=== PATIENT | male | born 1940 | race Caucasian/White ===

== ENCOUNTER 2017-01-19 08:25 | Outpatient (CLI) | payer MEDICARE, BC ==
[~2017-01-19 08:25] MED LIST: ADULT LOW DOSE81 MG PO; ASPIRIN 81MG TA81 MG PO; CHOLESTEROL MED PO; D-10001 TAB PO; LISINOPRIL2.5 M1 PO; WARFARIN SODIU7.5 MG PO
== END 2017-01-19 10:28 ==
LOC: ACC 08:25
DX: I63.9 Cerebral infarction, unspecified (principal); Z79.01 Long term (current) use of anticoagulants; Z51.81 Encounter for therapeutic drug level monitoring
CPT/HCPCS: G0463

== ENCOUNTER 2017-07-13 08:43 | Outpatient (CLI) | payer MEDICARE, BC | END 2017-07-13 10:47 | LOC: ACC 08:43 | DX: I25.3 Aneurysm of heart (principal); Z79.01 Long term (current) use of anticoagulants; Z51.81 Encounter for therapeutic drug level monitoring | CPT/HCPCS: G0463 ==

== ENCOUNTER 2017-10-19 08:32 | Outpatient (CLI) | payer MEDICARE, BC | END 2017-10-19 11:09 | LOC: ACC 08:32 | DX: I25.3 Aneurysm of heart (principal); Z79.01 Long term (current) use of anticoagulants; Z51.81 Encounter for therapeutic drug level monitoring | CPT/HCPCS: G0463 ==